=== PATIENT | male | born 1960 | race Caucasian/White ===

== ENCOUNTER 2017-10-23 18:43 | Inpatient (IN) | payer OTHER ==
[2017-10-23 18:58] VITALS: BMI 21.4
--- NOTE | 2017-10-23 21:53 | HP ---
CIWA Score - CIWA Score Nausea/Vomitin-Mild Nausea/No Vomiting Muscle Tremors: 4-Moderate,w/Arms Extend Anxiety: 4-Mod. Anxious/Guarded Agitation: 4-Moderately Restless Paroxysmal Sweats: 1-Minimal Palms Moist Orientation: 0-Oriented Tacttile Disturbances: 0-None Auditory Disturbances: 0-None Visual Disturbances: 0-None Headache: 3-Moderate CIWA-Ar Total Score: 17 Admission ROS S - HPI Chief Complaint: Alcohol withdrawal symptoms Allergies/Adverse Reactions: Allergies Allergy/AdvReac Type Severity Reaction Status Date / Time No Known Allergies Allergy Verified 10/23/17 20:36 History of Present Illness: 57 years old male with a long history of alcohol dependence is seeking admission to detox. Patient has been in previous at [facility] in [place]. He has medical history of seizure, Depression and Anxiety. He reports suicide attempt in 1988 and denies suicidal ideation at this time. 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 and uses prescr) Respiratory: reports: No Symptoms reported Cardiac: reports: No Symptoms Reported GI: reports: No Symptoms Reported : reports: No Symptoms Reported Musculoskeletal: reports: No Symptoms Reported, Muscle Weakness Integumentary: reports: Dryness Neuro: reports: Tremors Endocrine: reports: No Symptoms Reported Hematology: reports: No Symptoms Reported Psychiatric: reports: Anxious, Depressed Other Systems: Reviewed and Negative Patient History - Patient Medical History Hx Anemia: No Hx Asthma: No Hx Chronic Obstructive Pulmonary Disease (COPD): No Hx Cancer: No Hx Cardiac Disorders: No Hx Congestive Heart Failure: No Hx Hypertension: No Hx Hypercholesterolemia: No Hx Pacemaker: No HX Cerebrovascular Accident: No Hx Seizures: Yes Hx Dementia: No Hx Diabetes: No Hx Gastrointestinal Disorders: No Hx Liver Disease: No Hx Genitourinary Disorders: No Hx Sexually Transmitted Disorders: No Hx Renal Disease (ESRD): No Hx Thyroid Disease: No Hx Human Immunodeficiency Virus (HIV): No (Negative 2018) Hx Hepatitis C: No Hx Depression: Yes (Symbalta) Hx Suicide Attempt: Yes (Attempt in 1988.Denies suicidal ideation at this time) Hx Bipolar Disorder: No Hx Schizophrenia: No Other Medical History: Anxiety - Symbalta - Patient Surgical History Past Surgical History: No Hx Neurologic Surgery: No Hx Cataract Extraction: No Hx Cardiac Surgery: No Hx Lung Surgery: No Hx Abdominal Surgery: No Hx Appendectomy: No Hx Cholecystectomy: No Hx Genitourinary Surgery: No Hx Section: No Hx Orthopedic Surgery: No Anesthesia Reaction: No - PPD History Previous Implant?: Yes Implanted On Prior [facility] Admission?: No PPD to be Administered?: Yes - Reproductive History Patient is a Female of Child Bearing Age (11 -55 yrs old): No (MALE) - Smoking Cessation Smoking history: Current every day smoker Have you smoked in the past 12 months: Yes Aproximately how many cigarettes per day: 40 Hx Chewing Tobacco Use: No Initiated information on smoking cessation: Yes 'Breaking Loose' booklet given: 10/23/17 - Substance & Tx. History Hx Alcohol Use: Yes Hx Substance Use: No Substance Use Type: Alcohol Hx Substance Use Treatment: Yes ( [facility]) - Substances Abused Alcohol Route: Oral Frequency: Daily Amount used: 2 sy remy Age of first use: 16 Date of Last Use: 10/23/17 Family Disease History - Family Disease History Family Disease History: CA: Father (PROSTATE - ), Mother (BRAIN, LIVER & LUNG CA - ) Admission Physical Exam S - Vital Signs Vital Signs: Vital Signs - 24 hr 10/23/17 18:45 Temperature 98.9 F Pulse Rate 102 H Respiratory 18 Rate Blood Pressure 150/92 - Physical General Appearance: Yes: Moderate Distress, Irritable, Anxious HEENTM: Yes: Normal ENT Inspection, Normocephalic, Normal Voice, MAR[place]E Respiratory: Yes: Lungs Clear, Normal Breath Sounds, No Respiratory Distress Neck: Yes: Supple Breast: Yes: Breast Exam Deferred Cardiology: Yes: Regular Rhythm, Regular Rate Abdominal: Yes: Normal Bowel Sounds Genitourinary: Yes: Within Normal Limits Back: Yes: Normal Inspection Musculoskeletal: Yes: Within Normal Limits Extremities: Yes: Tremors Neurological: Yes: Alert, Normal Mood/Affect Integumentary: Yes: Warm Lymphatic: Yes: Within Normal Limits - Diagnostic (1) Alcohol dependence with uncomplicated withdrawal Current Visit: Yes Status: Chronic (2) Seizure Current Visit: Yes Status: Chronic (3) Depression Current Visit: Yes Status: Chronic Qualifiers: Depression Type: unspecified Qualified Code(s): F32.9 - Major depressive disorder, single episode, unspecified (4) Anxiety Current Visit: Yes Status: Chronic (5) Nicotine dependence Current Visit: Yes Status: Chronic BHS Breath Alcohol Content Breath Alcohol Content: 0.072 Urine Drug Screen - Results Drug Screen Negative: No Urine Drug Screen Results: BZO-Benzodiazepines
[2017-10-23] MEDS ORDERED: MELATONIN 5 MG TABLETS PO PRN (22:00)
[2017-10-23] MEDS ORDERED: MAGNESIUM CITRATE 300 ML BOTTLE PO PRN (22:23)
[2017-10-23] MEDS ORDERED: P-EPHED 60MG/TRIPROLIDI 2.5MG TABLET PO PRN (22:23)
[2017-10-23] MEDS ORDERED: MENTHOL/PHENOL 1 EACH UD MM PRN (22:23)
[2017-10-23] MEDS ORDERED: MAG HYDROX/AL HYDROX/SIMETH 30 ML UNIT-DOSE CUP PO PRN (22:23)
[2017-10-23] MEDS ORDERED: MAGNESIUM HYDROX 2400MG/30ML ORAL SUSPENSION 30 ML CUP PO PRN (22:23)
[2017-10-23] MEDS ORDERED: LOPERAMIDE HCL 2 MG CAPSULE PO PRN (22:23)
[2017-10-23] MEDS ORDERED: guaiFENesin/D-METHORPHAN HB 10 ML UNIT-DOSE CUPS PO PRN (22:23)
[2017-10-23] MEDS ORDERED: ACETAMINOPHEN 325 MG TABLET (FP) PO PRN (22:23)
[2017-10-23] MEDS: chlordiazePOXIDE HCL 25 MG CAPSULE PO SCH (23:01)
[2017-10-24 05:10] LABS: URINE APPEARANCE CLEAR; URINE BILIRUBIN NEGATIVE (<2.0 mg/dL); URINE COLOR STRAW; URINE GLUCOSE (UA) NEGATIVE (NEGATIVE); URINE KETONE NEGATIVE (NEGATIVE); URINE LEUK ESTERASE NEGATIVE (NEGATIVE); URINE NITRITE NEGATIVE (NEGATIVE); URINE PROTEIN NEGATIVE (NEGATIVE); URINE UROBILINOGEN NEGATIVE mg/dL (0.2-1.0)
[2017-10-24] MEDS: chlordiazePOXIDE HCL 25 MG CAPSULE PO SCH ×4 (05:29→22:26)
[2017-10-24] MEDS ORDERED: ONDANSETRON *ODT* 4 MG TABLET SL PRN (09:16)
[2017-10-24 09:50] LABS: HEMATOCRIT 41.7 % (35.4-49); HEMOGLOBIN 14.5 GM/dL (11.7-16.9); MCH 31.7 pg (25.7-33.7); MCHC 34.8 g/dl (32.0-35.9); MEAN CELL VOLUME 91.2 fl (80-96); MEAN PLT VOLUME 7.8 fl (7.5-11.1); PLATELET COUNT 301 K/MM3 (134-434); RBC 4.57 M/mm3 (4.00-5.60); WHITE BLOOD COUNT 7.5 K/mm3 (4.0-10.0)
[2017-10-24 09:55] LABS: CHLORIDE 103 mmol/L (98-107); POTASSIUM 4.2 mmol/L (3.5-5.1); SODIUM 142 mmol/L (136-145)
[2017-10-24 10:03] LABS: ALBUMIN 3.5 g/dl (3.4-5.0); ALK PHOS 104 U/L (45-117); ANION GAP 8 (8-16); BILIRUBIN,TOTAL 0.3 mg/dL (0.2-1.0); BLOOD UREA NITROGEN 7 mg/dL (7-18); CALCIUM 8.8 mg/dL (8.5-10.1); CO2 31 mmol/L (21-32); GLUCOSE,RANDOM 74 mg/dL (74-106); SGOT/AST 20 U/L (15-37); SGPT/ALT 22 U/L (12-78); TOT PROT 6.7 g/dl (6.4-8.2)
[2017-10-24] MEDS: PRENATAL VITAMINS W/ FOLIC ACID TABLET (FP) PO SCH (10:07)
[2017-10-24] MEDS: chlordiazePOXIDE HCL 25 MG CAPSULE PO PRN ×2 (12:29→18:46)
--- NOTE | 2017-10-24 13:59 | CONSULT ---
[facility] Psychiatric Consult - Data Date of interview: 10/24/17 Admission source: [facility] Identifying data: This is a 57 years old male, single, homeless, on PA, with psychiatric hospitalization history, with a long history of alcohol, Nicotine dependence is seeking admission to detox. Patient has been in previous at [facility] in [place]. He has medical history of seizure, Depression and Anxiety. He reports suicide attempt in 1988 and denies suicidal ideation at this time. Substance Abuse History: - Smoking Cessation. Smoking history: Current every day smoker. Have you smoked in the past 12 months: Yes. Aproximately how many cigarettes per day: 40. Hx Chewing Tobacco Use: No. Initiated information on smoking cessation: Yes. 'Breaking Loose' booklet given: 10/23/17. - Substance & Tx. History. Hx Alcohol Use: Yes. Hx Substance Use: No. Substance Use Type : Alcohol. Hx Substance Use Treatment: Yes ( [facility]). - Substances Abused. Alcohol. Route: Oral. Frequency: Daily. Amount used: 2 quarts shirley remy. Age of first use: 16. Date of Last Use: 10/23/17 Medical History: Seizure history Psychiatric History: Patient reports history of anxiety and depression, reports only suicidal attempt on 1988,, no suicidal, homicidal history since then, reports unclear psychiatric admission on about 5 years ago for safety, reports takign Cymbalta 60mg poqd prior ino admission Physical/Sexual Abuse/Trauma History: Denies Additional Comment: Cymbalta 60mg poqd Mental Status Exam - Mental Status Exam Alert and Oriented to: Person Cognitive Function: Fair Mood: Anxious Affect: Mood Congruent Patient Behavior: Cooperative Speech Pattern: Appropriate Voice Loudness: Normal Thought Process: Goal Oriented Thought Disorder: Being Controlled Hallucinations: Denies Suicidal Ideation: Denies Homicidal Ideation: Denies Insight/Judgement: Fair Sleep: Difficulty falling asleep Appetite: Weight loss Muscle strength/Tone: Mild Hypotonicity Gait/Station: Shuffling Additional Comments: Cymbalta 60mg poqd Psychiatric Findings - Problem List ([place] 1, 2,3) (1) Drug-induced mood disorder Current Visit: Yes Status: Acute (2) Alcohol dependence with uncomplicated withdrawal Current Visit: Yes Status: Chronic (3) Anxiety Current Visit: Yes Status: Chronic (4) Depression Current Visit: Yes Status: Chronic Qualifiers: Depression Type: unspecified Qualified Code(s): F32.9 - Major depressive disorder, single episode, unspecified (5) Nicotine dependence Current Visit: Yes Status: Chronic - Initial Treatment Plan Initial Treatment Plan: Cymbalta 60mg poqd
--- NOTE | 2017-10-24 15:28 | PN ---
S CIWA - CIWA Score Nausea/Vomitin-Int. Nausea w/Dry Heave Muscle Tremors: 2 Anxiety: 3 Agitation: 2 Paroxysmal Sweats: 2 Orientation: 0-Oriented Tacttile Disturbances: 0-None Auditory Disturbances: 0-None Visual Disturbances: 1-Very Mild Sensitivity Headache: 2-Mild CIWA-Ar Total Score: 16 S Progress Note (SOAP) Subjective: nausea and vomiting, chills, sweats, body aches, interrupted sleep Objective: 10/24/17 15:32 Vital Signs Temperature 97.6 F 10/24/17 13:04 Pulse Rate 78 10/24/17 14:30 Respiratory Rate 14 10/24/17 14:30 Blood Pressure 139/76 10/24/17 13:04 O2 Sat by Pulse Oximetry (%) Laboratory Last Values WBC 7.5 K/mm3 (4.0-10.0) 10/24/17 07:30 RBC 4.57 M/mm3 (4.00-5.60) 10/24/17 07:30 Hgb 14.5 GM/dL (11.7-16.9) 10/24/17 07:30 Hct 41.7 % (35.4-49) 10/24/17 07:30 MCV 91.2 fl (80-96) 10/24/17 07:30 MCH 31.7 pg (25.7-33.7) 10/24/17 07:30 MCHC 34.8 g/dl (32.0-35.9) 10/24/17 07:30 RDW 14.0 % (11.9-15.9) 10/24/17 07:30 Plt Count 301 K/MM3 (134-434) 10/24/17 07:30 MPV 7.8 fl (7.5-11.1) 10/24/17 07:30 Sodium 142 mmol/L (136-145) 10/24/17 07:30 Potassium 4.2 mmol/L (3.5-5.1) 10/24/17 07:30 Chloride 103 mmol/L (98-107) 10/24/17 07:30 Carbon Dioxide 31 mmol/L (21-32) 10/24/17 07:30 Anion Gap 8 (8-16) 10/24/17 07:30 BUN 7 mg/dL (7-18) 10/24/17 07:30 Creatinine 1.0 mg/dL (0.7-1.3) 10/24/17 07:30 Creat Clearance w eGFR > 60 (>60) 10/24/17 07:30 Random Glucose 74 mg/dL (74-106) 10/24/17 07:30 Calcium 8.8 mg/dL (8.5-10.1) 10/24/17 07:30 Total Bilirubin 0.3 mg/dL (0.2-1.0) 10/24/17 07:30 AST 20 U/L (15-37) 10/24/17 07:30 ALT 22 U/L (12-78) 10/24/17 07:30 Alkaline Phosphatase 104 U/L (45-117) 10/24/17 07:30 Total Protein 6.7 g/dl (6.4-8.2) 10/24/17 07:30 Albumin 3.5 g/dl (3.4-5.0) 10/24/17 07:30 Urine Color Straw 10/23/17 23:26 Urine Appearance Clear 10/23/17 23:26 Urine pH 7.0 (5.0-8.0) 10/23/17 23:26 Ur Specific [place] 1.005 (1.001-1.035) 10/23/17 23:26 Urine Protein Negative (NEGATIVE) 10/23/17 23:26 Urine Glucose (UA) Negative (NEGATIVE) 10/23/17 23:26 Urine Ketones Negative (NEGATIVE) 10/23/17 23:26 Urine Blood Negative (NEGATIVE) 10/23/17 23:26 Urine Nitrite Negative (NEGATIVE) 10/23/17 23:26 Urine Bilirubin Negative (<2.0 mg/dL) 10/23/17 23:26 Urine Urobilinogen Negative mg/dL (0.2-1.0) 10/23/17 23:26 Ur Leukocyte Esterase Negative (NEGATIVE) 10/23/17 23:26 RPR Titer Nonreactive (NONREACTIVE) 10/24/17 07:30 Aox3 no distress no adventitious breath sounds ambulating in the unit Assessment: 10/24/17 15:33 withdrawal symptoms Plan: continue detox increase PO fluids continue to monitor
[2017-10-24] MEDS: THIAMINE HCL 100 MG TABLET (FP) PO SCH (22:26)
[2017-10-25] MEDS: chlordiazePOXIDE HCL 25 MG CAPSULE PO SCH ×3 (05:35→17:17)
[2017-10-25] MEDS: DULoxetine HCL 60 MG CAPSULE.DR PO SCH (10:08)
[2017-10-25] MEDS: PRENATAL VITAMINS W/ FOLIC ACID TABLET (FP) PO SCH (10:08)
[2017-10-25] MEDS: NICOTINE POLACRILEX 4 MG GUM BUC PRN ×3 (10:09→22:21)
[2017-10-25] MEDS: NICOTINE 21 MG/24 HOURS TOPICAL PATCH TD SCH (10:10)
[2017-10-25] MEDS ORDERED: chlordiazePOXIDE HCL 25 MG CAPSULE PO ONE (12:10)
--- NOTE | 2017-10-25 13:43 | PN ---
S CIWA - CIWA Score Nausea/Vomitin-Mild Nausea/No Vomiting Muscle Tremors: 4-Moderate,w/Arms Extend Anxiety: 5 Agitation: 4-Moderately Restless Paroxysmal Sweats: 4-Forehead w/Sweat Beads Orientation: 0-Oriented Tacttile Disturbances: 0-None Auditory Disturbances: 0-None Visual Disturbances: 0-None Headache: 0-None Present CIWA-Ar Total Score: 18 BHS Progress Note (SOAP) Subjective: pt states he is in withdrawal and this dose of librium is not working for him- feels anxiety Objective: 10/25/17 13:44 Vital Signs - 24 hr 10/24/17 10/24/17 10/24/17 14:00 14:30 15:00 Temperature Pulse Rate 86 78 76 Respiratory 20 14 18 Rate Blood Pressure 10/24/17 10/24/17 10/24/17 15:30 16:00 16:30 Temperature Pulse Rate 78 80 80 Respiratory 20 20 20 Rate Blood Pressure 10/24/17 10/24/17 10/24/17 17:00 17:30 18:00 Temperature Pulse Rate 79 81 88 Respiratory 16 18 18 Rate Blood Pressure 10/24/17 10/24/17 10/24/17 18:17 18:30 19:00 Temperature 98.9 F Pulse Rate 79 84 96 H Respiratory 18 16 18 Rate Blood Pressure 144/93 10/24/17 10/24/17 10/24/17 19:30 20:00 20:30 Temperature Pulse Rate 94 H 74 76 Respiratory 18 18 18 Rate Blood Pressure 10/24/17 10/24/17 10/24/17 21:00 21:30 21:49 Temperature 97.4 F L Pulse Rate 97 H 112 H 96 H Respiratory 18 16 18 Rate Blood Pressure 159/95 10/24/17 10/24/17 10/24/17 22:00 22:30 23:00 Temperature Pulse Rate 113 H 110 H 77 Respiratory 20 18 Rate Blood Pressure 10/25/17 10/25/17 10/25/17 00:30 03:30 06:42 Temperature 97.0 F L Pulse Rate 59 L Respiratory 18 18 18 Rate Blood Pressure 120/69 10/25/17 09:31 Temperature 97.8 F Pulse Rate 65 Respiratory 18 Rate Blood Pressure 121/68 [place] 120 pt agitated walking around, agitated, with tremors Assessment: 10/25/17 13:45 Withdrawal from alcohol and benzo's- withdrawal Sx Plan: Stat dose of librium give clonidine added pt has vistaril prn pt has librium prn q 4 and can give extra doses of librium
[2017-10-25] MEDS: chlordiazePOXIDE HCL 25 MG CAPSULE PO PRN (14:50)
[2017-10-25] MEDS: cloNIDine HCL 0.1 MG TABLET PO PRN ×2 (14:50→22:19)
[2017-10-25] MEDS: hydrOXYzine PAMOATE 50 MG CAPSULE (FP) PO PRN ×2 (17:23→22:20)
[2017-10-25] MEDS: THIAMINE HCL 100 MG TABLET (FP) PO SCH (22:19)
[2017-10-25] MEDS: chlordiazePOXIDE 5 MG CAPSULE PO SCH (22:19)
[2017-10-26] MEDS: chlordiazePOXIDE 5 MG CAPSULE PO SCH ×3 (05:37→18:27)
[2017-10-26] MEDS: NICOTINE POLACRILEX 4 MG GUM BUC PRN (05:38)
[2017-10-26] MEDS: IBUPROFEN 400 MG TABLET (FP) PO PRN ×2 (08:15→21:14)
[2017-10-26] MEDS: PRENATAL VITAMINS W/ FOLIC ACID TABLET (FP) PO SCH (10:41)
[2017-10-26] MEDS: NICOTINE 21 MG/24 HOURS TOPICAL PATCH TD SCH (10:42)
[2017-10-26] MEDS: DULoxetine HCL 60 MG CAPSULE.DR PO SCH (10:42)
[2017-10-26] MEDS: cloNIDine HCL 0.1 MG TABLET PO PRN ×2 (10:45→22:17)
--- NOTE | 2017-10-26 17:59 | PN ---
S Progress Note Note: PATIENT DECLINED TO SPEAK WITH PEDIATRIC SPORTS MEDICINE SPECIALIST AT ALL DURING MORNING ROUNDS ASSESSMENT TODAY. Stalin CRAVEN PEDIATRIC SPORTS MEDICINE SPECIALIST
[2017-10-26] MEDS: chlordiazePOXIDE HCL 25 MG CAPSULE PO PRN (18:31)
[2017-10-26] MEDS: THIAMINE HCL 100 MG TABLET (FP) PO SCH (22:16)
[2017-10-26] MEDS: chlordiazePOXIDE HCL 10 MG CAPSULE PO SCH (22:17)
[2017-10-26] MEDS: hydrOXYzine PAMOATE 50 MG CAPSULE (FP) PO PRN (22:21)
[2017-10-27] MEDS: chlordiazePOXIDE HCL 10 MG CAPSULE PO SCH (05:42)
[2017-10-27] MEDS: NICOTINE POLACRILEX 4 MG GUM BUC PRN (05:44)
[2017-10-27 06:15] VITALS: BP 121/77; PULSE 89; TEMP 97
--- NOTE | 2017-10-27 11:28 | DS ---
[facility] Detox Discharge Summary Admission Date: 10/23/17 Discharge Date: 10/27/17 - History Present History: Alcohol Dependence Pertinent Past History: Seizure disorder - Physical Exam Results Vital Signs: Vital Signs Temperature 97 F L 10/27/17 06:14 Pulse Rate 89 10/27/17 06:14 Respiratory Rate 18 10/27/17 06:14 Blood Pressure 121/77 10/27/17 06:14 O2 Sat by Pulse Oximetry (%) Pertinent Admission Physical Exam Findings: Withdrawal symptoms Laboratory Tests 10/23/17 10/24/17 10/24/17 23:26 07:30 07:30 WBC 7.5 RBC 4.57 Hgb 14.5 Hct 41.7 MCV 91.2 MCH 31.7 MCHC 34.8 RDW 14.0 Plt Count 301 MPV 7.8 Sodium 142 Potassium 4.2 Chloride 103 Carbon Dioxide 31 Anion Gap 8 BUN 7 Creatinine 1.0 Creat Clearance w eGFR > 60 Random Glucose 74 Calcium 8.8 Total Bilirubin 0.3 AST 20 ALT 22 Alkaline Phosphatase 104 Total Protein 6.7 Albumin 3.5 Urine Color Straw Urine Appearance Clear Urine pH 7.0 Ur Specific [place] 1.005 Urine Protein Negative Urine Glucose (UA) Negative Urine Ketones Negative Urine Blood Negative Urine Nitrite Negative Urine Bilirubin Negative Urine Urobilinogen Negative Ur Leukocyte Esterase Negative RPR Titer 10/24/17 07:30 WBC RBC Hgb Hct MCV MCH MCHC RDW Plt Count MPV Sodium Potassium Chloride Carbon Dioxide Anion Gap BUN Creatinine Creat Clearance w eGFR Random Glucose Calcium Total Bilirubin AST ALT Alkaline Phosphatase Total Protein Albumin Urine Color Urine Appearance Urine pH Ur Specific [place] Urine Protein Urine Glucose (UA) Urine Ketones Urine Blood Urine Nitrite Urine Bilirubin Urine Urobilinogen Ur Leukocyte Esterase RPR Titer Nonreactive Labs reviewed - Treatment Hospital Course: Detox Protocol Followed, Detoxed Safely, Responded well, Discharged Condition Good - Medication Discharge Medications: Ambulatory Orders Duloxetine HCl [Cymbalta -] 60 mg PO DAILY #30 capsule. 10/24/17 - Diagnosis (1) Alcohol dependence with uncomplicated withdrawal Status: Acute (2) Anxiety Status: Chronic (3) Depression Status: Chronic Qualifiers: Depression Type: unspecified Qualified Code(s): F32.9 - Major depressive disorder, single episode, unspecified (4) Nicotine dependence Status: Chronic (5) Seizure Status: Chronic - AMA Did Patient Leave Against Medical Advice: No (F/U with PCP within 2 weeks)
== END 2017-10-27 07:22 | disposition home or self-care (01) | DRG 775 ==
LOC: YASAS 18:43 → Y3N 20:36
PROVIDERS: ADMIT Surgery; ATTEND Surgery
PROC: HZ2ZZZZ Detoxification Services for Substance Abuse Treatment (ICD-10-PCS; principal; 2017-10-23)
DX: F10.230 Alcohol dependence with withdrawal, uncomplicated (principal); F17.210 Nicotine dependence, cigarettes, uncomplicated; F41.9 Anxiety disorder, unspecified; F32.9 Major depressive disorder, single episode, unspecified; F19.24 Other psychoactive substance dependence with psychoactive substance-induced mood disorder; G40.909 Epilepsy, unspecified, not intractable, without status epilepticus; Z91.5 Personal history of self-harm
CPT/HCPCS: 36415; 80053; 81003; 85027; 86593; J0735